=== PATIENT | female | born 1945 | race Caucasian/White ===

== ENCOUNTER 2020-12-01 14:55 | Emergency (ER) | payer MEDICARE, OTHER ==
[~2020-12-01 14:55] MED LIST: ACETAMINOPHEN-1 EAC2 PO; ACETAMINOPHEN325 MG PO; ACETAMINOPHEN500 M1 PO; ASPIRIN CHEWABL81 MG PO; ASPIRIN EC325 MG PO; CENTRUM SILVER1 EAC1 PO; CLARITIN10 MG PO; COLACE100 MG PO; COZAAR50 MG PO; CRANBERRY300 MG PO; CYMBALTA 30MG C30 MG PO; DULOXETINE HCL60 MG PO; DUONEB 2.5-0.5M1 AMP NEB; FEOSOL325 MG PO; FLOMAX0.4 MG PO; HABITROL7 MG TD; IMITREX100 MG PO; LAXATIVE OF CHOICE; LEVAQUIN750 M1 PO; MACROBID100 MG PO; MELOXICAM15 MG PO; MIDODRINE HCL5 MG PO; MIRALAX17 GM PO; MOBIC15 MG PO; PERCOCET 5-3251 EACH PO; PRILOSEC20 MG PO; SPIRIVA18 MCG INH; SUPHEDRIN30 MG PO; TYLENOL #31 EACH PO; TYLENOL WITH C1 EAC1 PO; ULTRA-LIGHT RO1 EACH XX; VENTOLIN (2.5 MG/3 M PO; VENTOLIN HFA IN18 GM INH; VITAMIN B-121000 MC1 PO; VITAMIN D1000 UNI1 PO; XARELTO10 MG PO
[2020-12-01 15:57] LABS: BASOPHIL 0.1 % (0-2); EOSINOPHIL 0.1 % (0-7); HCT 46.9 % (37.0-47.0); HGB 15.4 g/dl (12.5-16.0); MCH 32.8 pg (25.0-31.0); MCHC 32.8 g/dL (32.0-36.0); MCV 99.8 fL (78.0-100.0); MONOCYTE 2.4 % (0-12); MPV 9.9 fL (6.0-9.5); NEUTROPHIL 93.9 % (41-80); NRBC 0; PLT 275 K/uL (150-400); RDW 13.8 % (11.5-14.0)
[2020-12-01 16:01] LABS: INR 1.02 (0.9-1.2); PROTHROMBIN TIME 12.7 SECONDS (11.4-13.6)
[2020-12-01 16:02] LABS: PTT 25.7 SECONDS (22.2-34.7)
[2020-12-01 16:07] LABS: ALBUMIN 3.9 g/dL (3.4-5.0); BILIRUBIN - TOTAL 0.4 mg/dL (0.2-1.0); CREATININE 1.04 mg/dL (0.51-0.95); GLOBULIN (CALCULATION) 3.7 g/dL; POTASSIUM 4.1 mmol/L (3.5-5.1); TOTAL PROTEIN 7.6 g/dL (6.4-8.2)
[2020-12-01 17:31] LABS: BILIRUBIN NEGATIVE (NEGATIVE); BLOOD TRACE-INTACT Ery/uL (NEGATIVE); CLARITY CLEAR (CLEAR); COLOR YELLOW (YELLOW); GLUCOSE (U) NORMAL (NORMAL); LEUKOCYTES TRACE Leu/uL (NEGATIVE); NITRITE NEGATIVE (NEGATIVE); PROTEIN NEGATIVE (NEGATIVE); SPECIFIC GRAVITY 1.015 (1.001-1.030); UROBILINOGEN 0.2 mg/dL (0.2-1.0); pH 5.5 (5.0-9.0)
[2020-12-01 17:37] LABS: LACTIC ACID 3.1 mmol/L (0.4-1.9)
[2020-12-01 17:41] LABS: BACTERIA TRACE
[2020-12-01 17:42] LABS: CALCIUM OXALATE CRYSTALS TRACE
== END 2020-12-01 20:15 | disposition home or self-care (01) ==
LOC: FER 14:55
PROVIDERS: Emergency Medicine; Nurse Practitioner Family
DX: R07.89 Other chest pain (principal); R53.1 Weakness; R41.82 Altered mental status, unspecified; F17.210 Nicotine dependence, cigarettes, uncomplicated; I10 Essential (primary) hypertension
CPT/HCPCS: 36415; 70450; 71045; 80053; 81001; 82270; 83605; 84484; 85025; 85610; 85730; 87088; 93005; Q9967

== ENCOUNTER 2021-01-05 07:12 | Emergency (ER) | payer MEDICARE, OTHER ==
[~2021-01-05] VITALS: Ht 149.9 cm; Wt 53.1 kg
[2021-01-05 07:47] LABS: BASOPHIL 0.4 % (0-2); EOSINOPHIL 0.1 % (0-7); HCT 44.6 % (37.0-47.0); HGB 14.2 g/dl (12.5-16.0); LYMPHOCYTE 6.9 % (15-48); MCH 32.6 pg (25.0-31.0); MCHC 31.8 g/dL (32.0-36.0); MCV 102.5 fL (78.0-100.0); MONOCYTE 10.1 % (0-12); MPV 10.2 fL (6.0-9.5); NRBC 0; PLT 167 K/uL (150-400); RBC 4.35 M/uL (4.20-5.40); RDW 13.1 % (11.5-14.0); WBC 17.2 K/uL (4.0-10.5)
[2021-01-05 07:55] LABS: ALBUMIN 3.2 g/dL (3.4-5.0); BILIRUBIN - TOTAL 0.3 mg/dL (0.2-1.0); BUN/CREAT RATIO (CALC) 21.1 RATIO; CREATININE 1.28 mg/dL (0.51-0.95); GLOBULIN (CALCULATION) 3.4 g/dL; POTASSIUM 4.4 mmol/L (3.5-5.1); TOTAL PROTEIN 6.6 g/dL (6.4-8.2)
[2021-01-05 08:12] LABS: CKMB 12.5 ng/mL (0.0-3.6)
[2021-01-05 11:04] LABS: BILIRUBIN NEGATIVE (NEGATIVE); BLOOD 3+ Ery/uL (NEGATIVE); CLARITY HAZY (CLEAR); COLOR YELLOW (YELLOW); GLUCOSE (U) NORMAL (NORMAL); LEUKOCYTES NEGATIVE Leu/uL (NEGATIVE); NITRITE NEGATIVE (NEGATIVE); PROTEIN 2+ mg/dL (NEGATIVE); SPECIFIC GRAVITY >=1.030 (1.001-1.030); UROBILINOGEN 0.2 mg/dL (0.2-1.0); pH 5.5 (5.0-9.0)
[2021-01-05 11:23] LABS: BACTERIA TRACE
[2021-01-05 11:24] LABS: AMORPHOUS PHOSPHATE CRYSTALS MODERATE
[2021-01-05 11:25] LABS: GRANULAR CASTS TRACE
== END 2021-01-05 14:38 | disposition other institution (70) ==
LOC: FER 07:12
PROVIDERS: Emergency Medicine
DX: J44.1 Chronic obstructive pulmonary disease with (acute) exacerbation (principal); I21.4 Non-ST elevation (NSTEMI) myocardial infarction; I45.10 Unspecified right bundle-branch block; I10 Essential (primary) hypertension; F17.210 Nicotine dependence, cigarettes, uncomplicated; Z20.822 Contact with and (suspected) exposure to COVID-19; Z90.710 Acquired absence of both cervix and uterus; Z88.0 Allergy status to penicillin
CPT/HCPCS: 36415; 36600; 71046; 80053; 81001; 82553; 82803; 83605; 84484; 85025; 87040; 87077; 87186; 94640; 94660; 94664; 94762; J1644; J2930; U0002

== ENCOUNTER 2021-07-11 16:36 | Inpatient (IN) | payer MEDICARE, OTHER ==
[2021-07-11 18:50] LABS: BASOPHIL 0.5 % (0-2); EOSINOPHIL 1.8 % (0-7); HCT 43.4 % (37.0-47.0); HGB 13.6 g/dl (12.5-16.0); LYMPHOCYTE 20.6 % (15-48); MCH 31.9 pg (25.0-31.0); MCHC 31.3 g/dL (32.0-36.0); MCV 101.6 fL (78.0-100.0); MPV 11.6 fL (6.0-9.5); NEUTROPHIL 64.7 % (41-80); NRBC 0; PLT 173 K/uL (150-400); RBC 4.27 M/uL (4.20-5.40); RDW 13.5 % (11.5-14.0); WBC 5.7 K/uL (4.0-10.5)
[2021-07-11 18:56] LABS: INFLUENZA A NAA NEGATIVE (NEGATIVE)
[2021-07-11 19:12] LABS: CORONAVIRUS 2019 SARS-COV-2 POSITIVE (NEGATIVE)
[2021-07-11 20:30] LABS: LACTIC ACID 0.5 mmol/L (0.4-1.9)
[2021-07-11 20:33] LABS: BUN/CREAT RATIO (CALC) 26.2 RATIO; CREATININE 0.84 mg/dL (0.51-0.95); POTASSIUM 3.6 mmol/L (3.5-5.1)
[2021-07-12 06:02] LABS: BASOPHIL 0.2 % (0-2); EOSINOPHIL 0 % (0-7); HGB 13.4 g/dl (12.5-16.0); LYMPHOCYTE 9.1 % (15-48); MCH 31.8 pg (25.0-31.0); MCHC 31.9 g/dL (32.0-36.0); MCV 99.5 fL (78.0-100.0); MONOCYTE 3.4 % (0-12); MPV 10.3 fL (6.0-9.5); NEUTROPHIL 87.1 % (41-80); NRBC 0; PLT 135 K/uL (150-400); RBC 4.22 M/uL (4.20-5.40); RDW 13.1 % (11.5-14.0); WBC 4.4 K/uL (4.0-10.5)
[2021-07-12 06:27] LABS: BUN/CREAT RATIO (CALC) 26.9 RATIO; CREATININE 0.78 mg/dL (0.51-0.95)
--- NOTE | 2021-07-12 15:29 | NUR ---
07/12/21 A message was left for Patient's daughter requeting a return call to discuss discharge plans.
[2021-07-12] MEDS ORDERED: NEURONTIN100 MG PO (20:29)
[2021-07-12] MEDS ORDERED: ABILIFY5 MG PO (20:30)
[2021-07-12] MEDS ORDERED: CELEBREX **OUT100 MG PO (20:31)
[2021-07-12] MEDS ORDERED: NYSTATIN SUSP1 ML/ML SSP (20:32)
[2021-07-13 06:21] LABS: BILIRUBIN NEGATIVE (NEGATIVE); BLOOD 1+ Ery/uL (NEGATIVE); CLARITY CLEAR (CLEAR); COLOR YELLOW (YELLOW); GLUCOSE (U) NORMAL (NORMAL); LEUKOCYTES NEGATIVE Leu/uL (NEGATIVE); NITRITE NEGATIVE (NEGATIVE); PROTEIN NEGATIVE (NEGATIVE); SPECIFIC GRAVITY 1.025 (1.001-1.030); UROBILINOGEN 0.2 mg/dL (0.2-1.0)
[2021-07-13] MEDS ORDERED: DEXAMETHASONE 2M2 MG PO (07:37)
[2021-07-13] MEDS ORDERED: DUONEB 2.5-0.5M1 AMP NEB (09:43)
--- NOTE | 2021-07-13 10:32 | NUR ---
07/13/21 Per telephone conversation with Ilana Cerda, daughter, [phone]. Ms. Chance has an apartment in the basement of her daughter, Ms. Cerda. Rosalio Chance, son, also lives in the home. Ms. Chance has: 02 at 2 L from [facility] ([phone]), portables, rw, and 3in1. She has been followed by [facility] in the past and Ms. Cerda would like [facility] at discharge. - A referral was made to [facility] via [facility]. A report was given to INGA Gerber RN.
== END 2021-07-13 13:45 | disposition home health service (06) | DRG 177 ==
LOC: FER 16:36 → FTCU 22:26 → FMS 22:26 → FTCU 07-12 00:08
PROVIDERS: Nurse Practitioner; Nurse Practitioner Family; ADMIT Family Medicine
PROC: XW033E5 Introduction of Remdesivir Anti-infective into Peripheral Vein, Percutaneous Approach, New Technology Group 5 (ICD-10-PCS; principal; 2021-07-11)
PROC: 5A09357 Assistance with Respiratory Ventilation, Less than 24 Consecutive Hours, Continuous Positive Airway Pressure (ICD-10-PCS; 2021-07-11)
PROC: 8E0ZXY6 Isolation (ICD-10-PCS; 2021-07-12)
DX: U07.1 COVID-19 (principal); J12.82 Pneumonia due to coronavirus disease 2019; J96.21 Acute and chronic respiratory failure with hypoxia; J96.22 Acute and chronic respiratory failure with hypercapnia; G93.41 Metabolic encephalopathy; J44.0 Chronic obstructive pulmonary disease with (acute) lower respiratory infection; F03.90 Unspecified dementia, unspecified severity, without behavioral disturbance, psychotic disturbance, mood disturbance, and anxiety; I10 Essential (primary) hypertension; F17.210 Nicotine dependence, cigarettes, uncomplicated; F41.9 Anxiety disorder, unspecified; M19.90 Unspecified osteoarthritis, unspecified site; G43.909 Migraine, unspecified, not intractable, without status migrainosus; G89.29 Other chronic pain; Z96.643 Presence of artificial hip joint, bilateral; Z90.710 Acquired absence of both cervix and uterus; Z99.81 Dependence on supplemental oxygen; Z85.42 Personal history of malignant neoplasm of other parts of uterus; Z98.890 Other specified postprocedural states; Z88.0 Allergy status to penicillin; Z79.01 Long term (current) use of anticoagulants; Z79.899 Other long term (current) drug therapy
CPT/HCPCS: 36415; 36600; 71045; 80048; 81001; 82728; 82803; 83605; 84145; 84484; 85025; 85379; 87040; 93005; 94640; 97162; 97166; 97530-GP; 97535; C9399; J1100; J7050; U0002

== ENCOUNTER 2021-09-09 15:19 | Emergency (ER) | payer MEDICARE, OTHER ==
[~2021-09-09 15:19] MED LIST changes: +ABILIFY5 MG PO; +CELEBREX **OUT100 MG PO; +DEXAMETHASONE 2M2 MG PO; +NEURONTIN100 MG PO; +NYSTATIN SUSP1 ML/ML SSP
[2021-09-09 17:02] LABS: BASOPHIL 0.9 % (0-2); HCT 44.4 % (37.0-47.0); HGB 13.8 g/dl (12.5-16.0); LYMPHOCYTE 15.1 % (15-48); MCHC 31.1 g/dL (32.0-36.0); MONOCYTE 7.9 % (0-12); MPV 9.8 fL (6.0-9.5); NEUTROPHIL 73.8 % (41-80); NRBC 0; PLT 178 K/uL (150-400); RBC 4.31 M/uL (4.20-5.40); RDW 12.6 % (11.5-14.0); WBC 8.6 K/uL (4.0-10.5)
[2021-09-09 17:33] LABS: BUN/CREAT RATIO (CALC) 24.3 RATIO; CREATININE 0.74 mg/dL (0.51-0.95); POTASSIUM 4.4 mmol/L (3.5-5.1)
[2021-09-09 18:00] LABS: BILIRUBIN NEGATIVE (NEGATIVE); BLOOD 2+ Ery/uL (NEGATIVE); CLARITY CLEAR (CLEAR); COLOR YELLOW (YELLOW); GLUCOSE (U) NORMAL (NORMAL); LEUKOCYTES 1+ Leu/uL (NEGATIVE); NITRITE NEGATIVE (NEGATIVE); PROTEIN NEGATIVE (NEGATIVE); UROBILINOGEN 0.2 mg/dL (0.2-1.0)
[2021-09-09 18:10] LABS: BACTERIA TRACE; MUCOUS MODERATE
[2021-09-09] MEDS ORDERED: BACTRIM DS TAB1 EACH PO (18:42)
== END 2021-09-09 18:57 | disposition home or self-care (01) ==
LOC: FER 15:19
PROVIDERS: Nurse Practitioner Family
DX: N39.0 Urinary tract infection, site not specified (principal); I10 Essential (primary) hypertension; J44.9 Chronic obstructive pulmonary disease, unspecified
CPT/HCPCS: 36415; 80048; 81001; 85025; 87088; 99283

== ENCOUNTER 2022-03-10 20:44 | Emergency (ER) | payer MEDICARE, OTHER ==
[~2022-03-10 20:44] MED LIST changes: +BACTRIM DS TAB1 EACH PO
[2022-03-10 22:10] LABS: BASOPHIL 1.2 % (0-2); HCT 39.8 % (37.0-47.0); HGB 12.5 g/dl (12.5-16.0); LYMPHOCYTE 22.2 % (15-48); MCHC 31.4 g/dL (32.0-36.0); MCV 101.8 fL (78.0-100.0); MONOCYTE 10.2 % (0-12); MPV 9.4 fL (6.0-9.5); NRBC 0; PLT 155 K/uL (150-400); RBC 3.91 M/uL (4.20-5.40); RDW 12.8 % (11.5-14.0); WBC 7.8 K/uL (4.0-10.5)
[2022-03-10 22:19] LABS: BILIRUBIN NEGATIVE (NEGATIVE); BLOOD TRACE-LYSED Ery/uL (NEGATIVE); CLARITY CLEAR (CLEAR); COLOR YELLOW (YELLOW); GLUCOSE (U) NORMAL (NORMAL); LEUKOCYTES NEGATIVE Leu/uL (NEGATIVE); NITRITE NEGATIVE (NEGATIVE); PROTEIN NEGATIVE (NEGATIVE)
[2022-03-10 22:28] LABS: ALBUMIN 3.4 g/dL (3.4-5.0); BILIRUBIN - TOTAL 0.3 mg/dL (0.2-1.0); BUN/CREAT RATIO (CALC) 23.5 RATIO; CREATININE 1.02 mg/dL (0.51-0.95); GLOBULIN (CALCULATION) 3.2 g/dL; POTASSIUM 4.2 mmol/L (3.5-5.1); TOTAL PROTEIN 6.6 g/dL (6.4-8.2)
[2022-03-10 22:31] LABS: CALCIUM OXALATE CRYSTALS MODERATE
[2022-03-11] MEDS ORDERED: DIFLUCAN 100MG100 MG PO (00:44)
[2022-03-11] MEDS ORDERED: MACROBID100 MG PO (00:44)
== END 2022-03-11 01:10 | disposition home or self-care (01) ==
LOC: FER 20:44
PROVIDERS: Emergency Medicine
DX: N39.0 Urinary tract infection, site not specified (principal); J45.909 Unspecified asthma, uncomplicated
CPT/HCPCS: 36415; 80053; 81001; 85025; J0696; J1885; J2405; J7030